=== PATIENT | female | born 1985 | race Hispanic/Latino ===

== ENCOUNTER 2025-06-22 19:15 | Emergency (ER) | payer MEDICAID ==
[2025-06-22] MEDS: Ketorolac 60 MG/2 ML SDV IM ONE (20:29)
[2025-06-22] MEDS: Amoxicillin/Clavulanate K 875-125 MG Tab PO ONE (21:44)
== END 2025-06-22 21:47 | disposition home or self-care (01) ==
LOC: MW.ED 19:15
DX: J02.0 Streptococcal pharyngitis (principal); Z79.899 Other long term (current) drug therapy
CPT/HCPCS: 71045; 87651; 96372; 99283; A9270; J1100; J1885